=== PATIENT | female | born 1965 | race Two or more races ===

== ENCOUNTER 2022-12-21 00:08 | Emergency (ER) | payer OTHER ==
[~2022-12-21] VITALS: Ht 154.9 cm; Wt 86.8 kg
[2022-12-21 00:24] VITALS: BP 126/67
[2022-12-21] MEDS ORDERED: ONDANSETRON HCL 4 MG/2 ML VIAL IVP ONE (01:30)
[2022-12-21] MEDS ORDERED: SODIUM CHLORIDE 0.9% 1,000 ML IV ONE (01:30)
== END 2022-12-21 01:50 | disposition left against medical advice (07) ==
LOC: EMS 00:08
DX: R10.9 Unspecified abdominal pain (principal); Z53.21 Procedure and treatment not carried out due to patient leaving prior to being seen by health care provider